=== PATIENT | male | born 1970 | race Caucasian/White ===

== ENCOUNTER 2020-08-20 11:26 | Outpatient (CLI) | payer OTHER | END 2020-08-20 11:27 | disposition home or self-care (01) | LOC: SCSRAD 11:26 | PROVIDERS: ATTEND Allergy & Immunology | DX: J15.9 Unspecified bacterial pneumonia (principal) | CPT/HCPCS: 71046 ==

== ENCOUNTER 2023-01-12 16:01 | Outpatient (CLI) | payer OTHER | END 2023-01-12 16:02 | disposition home or self-care (01) | LOC: SCSRAD 16:01 | PROVIDERS: ATTEND Neurological Surgery | DX: M54.16 Radiculopathy, lumbar region (principal); M47.814 Spondylosis without myelopathy or radiculopathy, thoracic region; Z98.890 Other specified postprocedural states | CPT/HCPCS: 72070; 72110 ==